=== PATIENT | female | born 1995 | race Caucasian/White ===

== ENCOUNTER 2018-09-12 09:40 | Emergency (ER) | payer MEDICAID ==
--- NOTE | 2018-09-12 10:05 | ER Document Report ---
ED Psych Disorder / Suicide - General Mode of Arrival: Ambulatory Information source: Patient TRAVEL OUTSIDE OF THE U.[place] IN LAST 30 DAYS: No <ALEJANDRO BARRY - Last Filed: 09/12/18 10:37> <JACEK LOWE - Last Filed: 09/12/18 13:13> - General Chief Complaint: Suicidal Ideation Stated Complaint: PSYCH EVALUATION Time Seen by Provider: 09/12/18 09:53 Notes: 23-year-old female who presents to the emergency department today after a friend found her a belt and rope, trying to hang herself. Patient states she has been diagnosed with anxiety, ADHD, and depression and has felt suicidal since moving to [place] approximately 2 years ago. Patient states she is very stressed out and wants someone to "give her something to balance out the chemicals in her brain to make her more happy". Patient endorses suicidal ideation. Patient smells of EtOH. (ALEJANDRO BARRY) Past Medical History - General Information source: Patient - Social History Smoking Status: Current Every Day Smoker Cigarette use (# per day): Yes Frequency of alcohol use: Heavy Drug Abuse: Cocaine, Prescription drugs Family History: Reviewed & Not Pertinent Psychiatric Medical History: Reports: Hx Anxiety, Hx Depression <ALEJANDRO BARRY - Last Filed: 09/12/18 10:37> Review of Systems - Review of Systems Constitutional: No symptoms reported EENT: No symptoms reported Cardiovascular: No symptoms reported Respiratory: No symptoms reported Gastrointestinal: No symptoms reported Genitourinary: No symptoms reported Female Genitourinary: No symptoms reported Musculoskeletal: No symptoms reported Skin: No symptoms reported Hematologic/Lymphatic: No symptoms reported Neurological/Psychological: See HPI, Depression, Anxiety, Suicidal ideation -: Yes All other systems reviewed and negative <ALEJANDRO BARRY - Last Filed: 09/12/18 10:37> Physical Exam <ALEJANDRO BARRY - Last Filed: 09/12/18 10:37> - Vital signs Vitals: Temp Pulse Resp BP Pulse Ox 98.4 F 108 H 20 137/83 H 99 09/12/18 09:46 09/12/18 09:46 09/12/18 09:46 09/12/18 09:46 09/12/18 09:46 - Notes Notes: Physical Exam: General: Alert, EtOH on breath. HEENT: Normocephalic. Atraumatic. PERRL. Extraocular movements intact. Oropharynx clear. Neck: Supple. Non-tender. Respiratory: No respiratory distress. Cardiovascular: Regular rate and rhythm. Abdominal: Normal Inspection.No distension. Back: Non-tender. No deformity or step off. Extremities: Moves all four extremities. Upper extremities: Normal inspection. Normal ROM. Lower extremities: Normal inspection. No edema. Normal ROM. Neurological: AAOx4. Psychological: Manic. Delusional. Pressured speech. Skin: Warm. Dry. Normal color. (ALEJANDRO BARRY) Course - Laboratory Result Diagrams: 09/12/18 12:12 09/12/18 12:12 - EKG Interpretation by Md EKG shows normal: Sinus rhythm, [place], Intervals, QRS Complexes, ST-T Waves Rate: Normal - 95 Rhythm: NSR <JACEK LOWE - Last Filed: 09/12/18 13:13> - Re-evaluation Re-evalutation: 09/12/18 11:58 In consultation with Jael, the mental health worker, the patient is placed on [employer] paperwork. (JACEK LOWE) - Vital Signs Vital signs: Temp Pulse Resp BP Pulse Ox 98.4 F 108 H 20 137/83 H 99 09/12/18 09:46 09/12/18 09:46 09/12/18 09:46 09/12/18 09:46 09/12/18 09:46 - Laboratory Laboratory results interpreted by ri: 09/12/18 09/12/18 09/12/18 12:12 12:12 12:12 RDW 14.2 H Sodium 149.7 H Chloride 113 H Urine Protein 30 H Urine Ascorbic Acid 40 H Salicylates < 1.0 L Acetaminophen < 10 L Discharge <ALEJANDRO BARRY - Last Filed: 09/12/18 10:37> <JACEK LOWE - Last Filed: 09/12/18 13:13> - Discharge Clinical Impression: Manic psychosis Bipolar disorder Qualifiers: Active/Remission status: currently active Current bipolar episode type: manic Current episode severity: moderate Qualified Code(s): F31.12 - Bipolar disorder, current episode manic without psychotic features, moderate Acute alcohol intoxication Qualifiers: Complication of substance-induced condition: uncomplicated Qualified Code(s): F10.929 - Alcohol use, unspecified with intoxication, unspecified Condition: Stable Disposition: PSYCH HOSP/UNIT Scribe Attestation: 09/12/18 10:55 I personally performed the services described in the documentation, reviewed and edited the documentation which was dictated to the scribe in my presence, and it accurately records my words and actions. (JACEK LOWE) Scribe Documentation - Scribe Written by Scribe:: Abbey Kaiser, 09/12/2018 1039 acting as scribe for :: Ruddy <ALEJANDRO BARRY - Last Filed: 09/12/18 10:37>
[2018-09-12] MEDS ORDERED: MELATONIN 5 MG TABLET PO ONE (10:46)
[2018-09-12] MEDS ORDERED: DIPHENHYDRAMINE HCL 50 MG CAPSULE PO ONE (10:46)
[2018-09-12 12:36] LABS: ABSOLUTE LYMPHOCYTES (AUTO) 1.8 10^3/uL (0.5-4.7); ABSOLUTE MONOCYTES (AUTO) 0.6 10^3/uL (0.1-1.4); ABSOLUTE NEUT (AUTO) 3.2 10^3/uL (1.7-8.2); BASOPHILS % (AUTO) 0.2 % (0-2); HEMATOCRIT 41.3 % (36.0-47.0); LYMPHOCYTES % (AUTO) 32.6 % (13-45); MEAN CORPUSCULAR HEMOGLOBIN 29.6 pg (27.0-33.4); MEAN CORPUSCULAR HGB CONC 33.9 g/dL (32.0-36.0); MEAN CORPUSCULAR VOLUME 87 fl (80-97); PLATELET COUNT 193 10^3/uL (150-450); RED BLOOD COUNT 4.73 10^6/uL (3.72-5.28); RED CELL DISTRIBUTION WIDTH 14.2 % (11.5-14.0); SEGMENTED NEUTROPHILS % (AUTO) 57.2 % (42-78); TOTAL CELLS COUNTED % (AUTO) 100 %; WHITE BLOOD COUNT 5.6 10^3/uL (4.0-10.5)
[2018-09-12 12:58] LABS: ALANINE AMINOTRANSFERASE 29 U/L (9-52); ALBUMIN 4.8 g/dL (3.5-5.0); ALCOHOL 218 mg/dL (NONE DETECTED); ALKALINE PHOSPHATASE 41 U/L (38-126); ANION GAP 13 (5-19); ASPARTATE AMINO TRANSFERASE 28 U/L (14-36); BILIRUBIN,DIRECT 0.2 mg/dL (0.0-0.4); BILIRUBIN,TOTAL 0.2 mg/dL (0.2-1.3); BLOOD UREA NITROGEN 8 mg/dL (7-20); CARBON DIOXIDE 24 mmol/L (22-30); CHLORIDE 113 mmol/L (98-107); GLUCOSE 98 mg/dL (75-110); POTASSIUM 4.3 mmol/L (3.6-5.0); SODIUM 149.7 mmol/L (137-145); TOTAL PROTEIN 7.9 g/dL (6.3-8.2)
[2018-09-12 12:59] LABS: ACETAMINOPHEN < 10 ug/mL (10-30); SALICYLATE < 1.0 mg/dL (2.0-20.0)
[2018-09-12 13:04] LABS: APPEARANCE,URINE CLEAR; BILIRUBIN,URINE NEGATIVE (NEGATIVE); COLOR,URINE YELLOW; GLUCOSE, URINE NEGATIVE (NEGATIVE); KETONES,URINE NEGATIVE (NEGATIVE); LEUKOCYTE ESTERASE,URINE NEGATIVE (NEGATIVE); NITRITE,URINE NEGATIVE (NEGATIVE); PROTEIN,URINE 30 mg/dL (NEGATIVE); URINE SPECIFIC GRAVITY 1.019; UROBILINOGEN,URINE NEGATIVE mg/dL (<2.0)
[2018-09-12 13:16] LABS: URINE AMPHETAMINES SCREEN NEGATIVE; URINE BARBITURATES SCREEN NEGATIVE; URINE BENZODIAZEPINES SCREEN NEGATIVE; URINE COCAINE SCREEN NEGATIVE; URINE MARIJUANA (THC) SCREEN NEGATIVE; URINE METHADONE SCREEN NEGATIVE; URINE PHENCYCLIDINE SCREEN NEGATIVE
[2018-09-12] MEDS ORDERED: OLANZAPINE INJ/PF 10 MG SDV IM ONE ×2 (13:18→17:00)
--- NOTE | 2018-09-12 14:59 | EKG REPORT ---
SEVERITY:- NORMAL ECG - SINUS RHYTHM : Confirmed by: Rey Wright MD 12-Sep-2018 14:59:37
--- NOTE | 2018-09-12 15:00 | EKG REPORT ---
SEVERITY:- BORDERLINE ECG - SINUS RHYTHM BORDERLINE T ABNORMALITIES, INFERIOR LEADS : Confirmed by: Rey Wright MD 12-Sep-2018 15:00:02
[2018-09-12] MEDS: BENZTROPINE MESYLATE 1 MG TABLET PO SCH (16:58)
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
[2018-09-13] MEDS: OLANZAPINE 5 MG TABLET PO SCH ×2 (07:27→09:15)
[2018-09-13] MEDS: BENZTROPINE MESYLATE 1 MG TABLET PO SCH (09:15)
--- NOTE | 2018-09-13 11:08 | ER Document Report ---
Doctor's Note Notes: 09/13/18 11:07 Rounds: Patient being evaluated for manic behavior and alcohol intoxication. Feels better now. Says she knows she got drunk and she gets that way when she does. She has anxiety and depression. Patient's blood alcohol was 218. Patient appears to be medically stable for transfer or discharge. Tim Verdugo MD
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
[2018-09-13 15:01] VITALS: BP 121/63
== END 2018-09-13 15:01 | disposition home or self-care (01) ==
LOC: EDBD → ER 09:40
DX: F30.2 Manic episode, severe with psychotic symptoms (principal); F31.12 Bipolar disorder, current episode manic without psychotic features, moderate; F10.929 Alcohol use, unspecified with intoxication, unspecified; F17.210 Nicotine dependence, cigarettes, uncomplicated; F32.9 Major depressive disorder, single episode, unspecified; Z78.1 Physical restraint status; Y90.7 Blood alcohol level of 200-239 mg/100 ml
CPT/HCPCS: 93005; 99285; 96372; 36415; 80307 ×4; 84703; 85025; 80053; 81001; 93010; J3490 ×5

== ENCOUNTER 2018-11-18 10:01 | Emergency (ER) | payer OTHER ==
[2018-11-18 10:08] VITALS: BP 121/77
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
== END 2018-11-18 11:59 | disposition home or self-care (01) ==
LOC: ER 10:01
DX: M54.2 Cervicalgia (principal); M79.605 Pain in left leg; M79.604 Pain in right leg; M54.5 Low back pain; V89.2XXA Person injured in unspecified motor-vehicle accident, traffic, initial encounter; F17.210 Nicotine dependence, cigarettes, uncomplicated
CPT/HCPCS: 99284; 72110; 73590; 72125; L0120

== ENCOUNTER 2018-12-25 21:52 | Emergency (ER) | payer OTHER | END 2018-12-25 22:05 | disposition left against medical advice (07) | LOC: ER 21:52 | DX: Z53.21 Procedure and treatment not carried out due to patient leaving prior to being seen by health care provider (principal) ==

== ENCOUNTER 2019-01-12 21:04 | Emergency (ER) | payer SELFPAY | END 2019-01-12 21:45 | disposition left against medical advice (07) | LOC: ER 21:04 | DX: Z53.21 Procedure and treatment not carried out due to patient leaving prior to being seen by health care provider (principal) ==